=== PATIENT | female | born 1965 ===

== ENCOUNTER 2022-09-10 13:26 | Day surgery (SDC) | payer BC ==
[~2022-09-10] VITALS: Ht 172.7 cm; Wt 82.5 kg
[2022-09-10] VITALS (9 sets, daily range): BP systolic 154–172; BP diastolic 73–81; PULSE 94–101; TEMP 98–98.9
[2022-09-10] MEDS ORDERED: NORVASC 10MG10 MG PO (14:18)
[2022-09-10 14:38] LABS: BASO # 0.1 K/mm3 (0.0-0.2); BASO % 0.3 % (0.0-2.0); EOS # 0.6 K/mm3 (0.0-0.7); EOS % 3.6 % (0.0-4.0); GRAN # 12.7 K/mm3 (1.4-6.5); GRAN % 78.5 % (42.2-75.2); LYMPH # 1.8 K/mm3 (1.2-3.4); LYMPH % 11.2 % (20.0-51.0); MEAN CELL VOLUME 72 fl (80.0-100.0); MEAN CORPUSCULAR HGB CONC 30 g/dl (33.0-37.0); MEAN PLATELET VOLUME 8.5 fl (7.4-10.4); MONO % 5.8 % (1.7-9.3); PLATELET COUNT 435 K/mm3 (130-400); RED BLOOD COUNT 3.55 M/mm3 (4.10-5.30); REDCELL DISTRIBUTION WIDTH-CV 17.2 % (11.5-14.5)
[2022-09-10 14:39] LABS: HEMATOCRIT 25.7 % (37.0-47.0); HEMOGLOBIN 7.6 g/dl (12.5-16.0); MEAN CORPUSCULAR HEMOGLOBIN 21 pg (27-31)
[2022-09-10] MEDS ORDERED: NORCO 325 MG-51 TAB PO (14:49)
[2022-09-10] MEDS ORDERED: PYRIDIUM 100MG100 MG PO (17:23)
--- NOTE | 2022-09-10 19:10 | NUR ---
Pt to 222 from PACU. Pt alert and oriented. Denies having any pain. Pt states "I feel the port a cath but I dont feel any pain." Assessment completed and plan of care explained. Denies N/V. Pt wanting to discharge home. Jello and water given to pt. 1929: Pt able to ambulate to bathroom, standby assist and void without difficulty. 1944: BP's elevated. Pt and spouse state "this is my normal at night before I take my medication and I have not taken that for the last couple days." 2008: called on BP's. See physican notification. 2013: called for discharge. See physican notification.
--- NOTE | 2022-09-10 21:30 | NUR ---
VS stable. Pt able to eat, drink and use restroom. No nausea noted. Pt wanting to discharge home. Discharge instruction given. IV DC'd. Pt wheeled out and home with spouse.
== END 2022-09-10 21:30 | disposition home or self-care (01) ==
LOC: SDCO 13:26 → OB 20:40 → SDCO 21:30
PROVIDERS: Urology
DX: C65.1 Malignant neoplasm of right renal pelvis (principal); D50.9 Iron deficiency anemia, unspecified; I10 Essential (primary) hypertension
CPT/HCPCS: OP; C1769; C1788; J0690; J1100; J1644; J1885; J2405; J2704; J3010; J7120; Q9967